=== PATIENT | female | born 1990 | race Caucasian/White ===

== ENCOUNTER 2022-06-19 14:00 | Emergency (ER) | payer MEDICAID, SELFPAY ==
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
[2022-06-19 16:33] VITALS: BP 130/77; PULSE 64; RESP 18; TEMP 37.1; O2SAT 99; BMI 33.9
--- NOTE | 2022-06-19 16:47 | PC.NURSE ---
patient a/ox4 . went over discharge instructions as ordered by provider . patient to return if symptoms worsen . patient to follow with primary care . no questions at this time .
== END 2022-06-19 16:42 | disposition home or self-care (01) ==
PROVIDERS: Emergency Provider Emergency Medicine
DX: Z04.1 Encounter for examination and observation following transport accident (principal)
CPT/HCPCS: 70450; 70486; 72125; 99284